=== PATIENT | female | born 1990 | race Caucasian/White ===

== ENCOUNTER 2017-03-10 15:47 | Inpatient (IN) | payer MEDICAID ==
[2017-03-10] MEDS ORDERED: MINERAL OIL PO PRN (16:26)
[2017-03-10] MEDS ORDERED: XYLOCAINE 2% INFILTRATI ONE (16:26)
[2017-03-10] MEDS ORDERED: ePHEDrine SULFATE IV PRN ×2 (16:26→18:51)
[2017-03-10] MEDS ORDERED: BRETHINE SUB-Q PRN (16:26)
[2017-03-10] MEDS ORDERED: BRETHINE IVP PRN (16:26)
[2017-03-10] MEDS ORDERED: SUBLIMAZE IV PRN (16:26)
--- NOTE | 2017-03-10 16:33 | History and Physical Report ---
History of Present Illness Date of examination: 03/10/17 Date of admission: 03/10/17 15:51 Chief complaint: leaking fluid History of present illness: 26 Y/O , now 38.6 weeks presents to the office today with leaking fluid, care at [facility]. Unremarkable course. GBS negative. Past History Past Medical History: no pertinent history Past Surgical History: no surgical history Family/Genetic History: none Social history: no significant social history - Obstetrical History Expected Date of Delivery: 03/18/17 Actual Gestation: 38 Week(s) 6 Day(s) : 2 Para: 1 Hx # Term Pregnancies: 1 Number of Pregnancies: 0 Medications and Allergies Allergies Allergy/AdvReac Type Severity Reaction Status Date / Time No Known Allergies Allergy Verified 11/18/13 14:42 Home Medications Medication Instructions Recorded Confirmed Last Taken Type Acyclovir [Zovirax Tab] 800 mg PO QID 7 Days 08/21/13 02/23/16 Unknown Rx Duloxetine HCl [Cymbalta] 60 mg PO 08/21/13 08/21/13 Unknown History PARoxetine CR (NF) [Paxil] 12.5 mg PO 08/21/13 08/21/13 08/21/13 History Prednisone 40 mg PO QDAY 5 Days 08/21/13 02/23/16 Unknown Rx clonazePAM [Clonazepam] 0.5 mg PO 08/21/13 08/21/13 08/20/13 History Ibuprofen [Motrin] 800 mg PO TID #30 tablet 11/18/13 02/23/16 Unknown Rx methOCARBAMOL [Robaxin] 500 mg PO BID #30 tab 11/18/13 02/23/16 Unknown Rx traMADol [Ultram 50 MG tab] 50 mg PO Q6HR PRN #20 tablet 11/18/13 02/23/16 Unknown Rx Ibuprofen [Motrin 600 MG tab] 600 mg PO Q6HR PRN #60 tablet 02/23/16 Unknown Rx Review of Systems All systems: negative - Physical Exam Breasts: Positive: deferred Cardiovascular: Regular rate Lungs: Positive: Clear to auscultation Abdomen: Positive: soft Genitourinary (Female): Positive: normal external genitalia Vagina: Positive: normal moisture Uterus: Positive: enlarged Anus/Rectum: Positive: normal perianal skin Extremities: Positive: normal Deep Tendon Reflex Grade: Normal +2 - Obstetrical FHR: category 1 Uterine Contraction Monitor Mode: External Cervical Dilatation: 8 Cervical Effacement Percentage: 80 station: 0 Uterine Contraction Pattern: Irregular Uterine Contraction Intensity: Mild Results Result Diagrams: 03/10/17 16:52 All other labs normal. Assessment and Plan A: Active labor @ 38.6 weeks P: Expect
[2017-03-10] MEDS ORDERED: PITOCin/NS 20 UNIT/1000ML DRIP 20 UNITS/1,000 ML BAG IV SCH (17:00)
[2017-03-10] MEDS ORDERED: LACTATED RINGERS 1,000 ML IV SCH (17:00)
[2017-03-10] MEDS: PITOCin/NS 30 UNIT/500ML 30 UNITS/500 ML BAG IV SCH ×3 (17:10→18:44)
[2017-03-10 17:57] LABS: Hematocrit 36.4 % (30.3-42.9); Hemoglobin 11.8 gm/dl (10.1-14.3); Mean Corpuscular HGB Conc 32 % (30-34); Mean Corpuscular Hemoglobin 30 pg (28-32); Mean Corpuscular Volume 92 fl (79-97); Platelet Count 198 K/mm3 (140-440); Red Blood Count 3.97 M/mm3 (3.65-5.03); Red Cell Distribution Width 14.3 % (13.2-15.2); White Blood Count 10.7 K/mm3 (4.5-11.0)
[2017-03-10] MEDS ORDERED: NARCAN 2 MG/2 ML IV PRN (18:51)
--- NOTE | 2017-03-10 18:51 | Anesthesia Consultation ---
Anesthesia Consult and Med Hx Date of service: 03/10/17 - Airway Anesthetic Teeth Evaluation: Good ROM Head & Neck: Adequate Mental/Hyoid Distance: Adequate Mallampati Class: Class II Intubation Access Assessment: Probably Good - Pre-Operative Health Status ASA Pre-Surgery Classification: ASA2 Proposed Anesthetic Plan: Epidural, Spinal - Pulmonary Hx Asthma: No COPD: No Hx Pneumonia: No - Cardiovascular System Hx Hypertension: No - Central Nervous System Hx Seizures: No Hx Psychiatric Problems: No - Endocrine Hx Renal Disease: No Hx End Stage Renal Disease: No Hx Hypothyroidism: No Hx Hyperthyroidism: No - Hematic Hx Anemia: No Hx Sickle Cell Disease: No - Other Systems Hx Alcohol Use: No
[2017-03-10] MEDS ORDERED: fentaNYL-BUPIV 2 MCG/ML-0.125% 200 MCG/100 ML BAG EPIDURAL SCH (19:00)
--- NOTE | 2017-03-10 19:38 | Procedure Note ---
OB Delivery Note - Delivery Date of Delivery: 03/10/17 Surgeon: BOY TAYLOR - Vaginal Delivery presentation: vertex Delivery position: OA Delivery induction: none Delivery augmentation: rupture of membranes, pitocin Delivery monitor: none Route of delivery: Delivery placenta: spontaneous Delivery cord: 3 umbilical vessels Episiotomy: none Delivery laceration: none Anesthesia: epidural Delivery comments: of a viable female 6#-2oz on March 10, 2017 @ 1912 over intact perineum. 8/9. Placenta delivered 3VCI. - A at 1 minute: 8 at 5 minutes: 9 Infant Gender: Female (6#2oz)
[2017-03-10] MEDS ORDERED: BENADRYL PO PRN (19:41)
[2017-03-10] MEDS ORDERED: DULCOLAX PR PRN (19:41)
[2017-03-10] MEDS ORDERED: TYLENOL PO PRN (19:41)
[2017-03-10] MEDS ORDERED: LANSINOH TP PRN (19:41)
[2017-03-10] MEDS ORDERED: DERMOPLAST TP PRN (19:41)
[2017-03-10] MEDS ORDERED: MILK OF MAGNESIA PO PRN (19:41)
[2017-03-10] MEDS ORDERED: PHENERGAN PO PRN (19:41)
[2017-03-10] MEDS ORDERED: SODIUM CHLORIDE FLUSH SYRINGE 10 ML IV NR (20:00)
[2017-03-10] MEDS: MOTRIN PO SCH (20:35)
[2017-03-10] MEDS: NORCO 5/325 PO PRN (21:14)
[2017-03-11] MEDS: NORCO 5/325 PO PRN ×2 (02:38→22:55)
[2017-03-11] MEDS: MOTRIN PO SCH ×4 (02:39→22:54)
[2017-03-11] MEDS ORDERED: BOOSTRIX IM ONE (06:00)
[2017-03-11 08:33] LABS: Hematocrit 34.6 % (30.3-42.9); Hemoglobin 11.4 gm/dl (10.1-14.3)
--- NOTE | 2017-03-11 09:43 | Progress Note ---
Assessment and Plan A: PPD1 VSS P: Routine care D/C tomorrow Subjective - Subjective Date of service: 03/11/17 Principal diagnosis: PPD1 Interval history: 26 Y/O , now 38.6 weeks presented to the office yesterday with leaking fluid, care at [facility]. Unremarkable course. GBS negative. Delivered on 03/10/2017 @ 1912. Patient reports: appetite normal, voiding normally, pain well controlled, ambulating normally [place]: doing well Objective - Vital Signs Latest vital signs: Vital Signs Temp Pulse Pulse Resp BP BP Pulse Ox 03/11/17 05:00 98 F 78 20 98/59 03/10/17 20:40 97.0 F L 20 03/10/17 20:35 98.8 F 77 20 108/70 03/10/17 20:18 76 91 03/10/17 20:16 65 99 03/10/17 20:11 72 99 03/10/17 20:10 111/70 03/10/17 20:06 67 99 03/10/17 20:01 85 99 03/10/17 19:56 78 98 03/10/17 19:55 75 111/67 03/10/17 19:51 82 100 03/10/17 19:49 82 110/76 88 03/10/17 19:46 73 100 03/10/17 19:41 70 98 03/10/17 19:39 79 93 03/10/17 19:36 73 100 03/10/17 19:32 65 100/53 03/10/17 19:31 72 100 03/10/17 19:26 85 100 03/10/17 19:21 82 100 03/10/17 19:16 72 100 03/10/17 19:15 96.6 F L 18 03/10/17 19:11 102 H 100 03/10/17 19:06 64 100 03/10/17 19:01 66 100 03/10/17 18:56 62 100 03/10/17 18:52 60 106/58 03/10/17 18:51 64 100 03/10/17 18:46 79 100 03/10/17 18:41 61 99/62 99 03/10/17 18:40 80 95/60 03/10/17 18:38 121 H 95/59 03/10/17 18:36 75 95/61 100 03/10/17 18:34 104 H 103/58 03/10/17 18:32 74 110/66 03/10/17 18:31 67 100 03/10/17 18:29 71 109/76 03/10/17 18:27 77 108/75 03/10/17 18:26 63 109/62 82 L 03/10/17 18:25 79 81 L 03/10/17 18:21 88 93 03/10/17 18:20 81 93 03/10/17 18:16 85 100 03/10/17 18:09 80 109/71 03/10/17 17:54 87 108/76 03/10/17 17:39 78 108/70 03/10/17 17:25 77 109/67 03/10/17 17:09 80 108/73 03/10/17 16:55 90 110/68 03/10/17 16:42 97.6 F 18 03/10/17 16:39 85 108/74 Intake and Output 03/10/17 03/11/17 03/11/17 22:59 06:59 14:59 Intake Total 2245 985 Output Total 500 500 Balance 1745 485 Intake: IV 1520 625 Lactated Ringers 1,000 ml 1270 @ 125 mls/hr IV DIRECT MICHELL Rx#:[id number] PITOCin/NS 20 UNIT/1000ML 125 375 DRIP 20 units In 1,000 ml @ 125 mls/hr IV DIRECT MICHELL Rx#:[id number] Right Hand 125 250 Intake, Free Water 360 Other 725 Output: Urine 500 500 Indwelling Catheter 500 Void 500 Other: Intake, Other Source Saline Solution Total, Intake Amount 725 Total, Output Amount 200 500 Weight 150 lb Estimated Blood Loss 200 - Exam Cardiovascular: Present: Regular rate Lungs: Present: Normal air movement Abdomen: Present: soft Vulva: both: normal (scant lochia) Uterus: Present: firm, fundal height below umbilicus Extremities: Present: normal Deep Tendon Reflex Grade: Normal +2 - Allied health notes Allied health notes reviewed: nursing
--- NOTE | 2017-03-11 09:44 | Discharge Summary ---
Providers - Providers Date of Admission: 03/10/17 15:51 Date of discharge: 03/12/17 Attending physician: TRACY WILSON MD Primary care physician: TRACY WILSON MD Hospitalization Reason for admission: rupture of membranes, IUP at term Delivery: Laceration: none Discharge diagnosis: IUP at term delivered [place] baby: female Hospital course: uneventful Condition at discharge: Good Disposition: DISCHARGED TO HOME OR SELFCARE Plan - Provider Discharge Summary Activity: routine, no sex for 6 weeks, no heavy lifting 4 weeks, no strenuous exercise Diet: routine Instructions: routine Additional instructions: [] Smoking cessation referral if applicable(refer to patient education folder for contact #) [] Refer to [facility] Booklet Call your doctor immediately for: * Fever > 100.5 * Heavy vaginal bleeding ( >1 pad per hour) * Severe persistent headache * Shortness of breath * Reddened, hot, painful area to leg or breast * Drainage or odor from incision. * Keep incision clean and dry at all times and follow doctor's instructions regarding bathing/showering - Follow up plan Follow up: [facility] [Provider Group] - 6 Weeks
[2017-03-11] MEDS ORDERED: FLUARIX QUAD 2016-2017(36 MOS+) IM ONE (12:00)
--- NOTE | 2017-03-11 12:33 | Progress Note ---
Subjective Date of service: 03/11/17 Principal diagnosis: PPD1 Interval history: 1st day after normal vaginal delivery Patient is in the bed, comfortable. Pain is well controlled with pain meds. Ambulated well. No residual neurological deficit. No anesthesia complications Objective - Constitutional Vitals: Vital Signs - 12hr 03/11/17 03/11/17 05:00 08:35 Temperature 98 F 98.9 F Pulse Rate [ 78 80 Left From Monitor] Respiratory 20 20 Rate Blood Pressure 98/59 102/52 [Left Arm] - Labs CBC & Chem 7: 03/11/17 08:07
[2017-03-12] MEDS: MOTRIN PO SCH (06:22)
[2017-03-12] MEDS ORDERED: FLUARIX QUAD 2016-2017(36 MOS+) IM ONE (07:25)
[2017-03-12 13:16] VITALS: BP 112/58
== END 2017-03-12 11:45 | disposition home or self-care (01) | DRG 775 ==
LOC: TRG 15:47 → LD 15:51 → OB 20:51
PROVIDERS: ADMIT Obstetrics & Gynecology; ATTEND Obstetrics & Gynecology
PROC: 10E0XZZ Delivery of Products of Conception, External Approach (ICD-10-PCS; principal; 2017-03-10)
PROC: 3E033VJ Introduction of Other Hormone into Peripheral Vein, Percutaneous Approach (ICD-10-PCS; 2017-03-10)
PROC: 3E0R3BZ Introduction of Anesthetic Agent into Spinal Canal, Percutaneous Approach (ICD-10-PCS; 2017-03-10)
DX: O80 Encounter for full-term uncomplicated delivery (principal); Z3A.38 38 weeks gestation of pregnancy; Z37.0 Single live birth
CPT/HCPCS: 36415; 85014; 85018; 85027; 86850; 86900; 86901; 90471; 90686; 90715; 99211; G0008; G0463; J2590; J3010; J7120

== ENCOUNTER 2019-05-10 12:13 | Inpatient (IN) | payer MEDICAID ==
[2019-05-10] MEDS ORDERED: STADOL IV PRN (13:36)
[2019-05-10] MEDS ORDERED: BRETHINE SUB-Q PRN (13:36)
[2019-05-10] MEDS ORDERED: XYLOCAINE 2% INFILTRATI ONE (13:36)
[2019-05-10] MEDS ORDERED: BRETHINE IVP PRN (13:36)
[2019-05-10] MEDS ORDERED: CERVIDIL VG ONE (13:36)
[2019-05-10] MEDS ORDERED: SUBLIMAZE IV PRN (13:36)
[2019-05-10] MEDS ORDERED: MINERAL OIL PO PRN (13:36)
[2019-05-10 13:58] LABS: Hematocrit 34.3 % (30.3-42.9); Hemoglobin 11.6 gm/dl (10.1-14.3); Mean Corpuscular HGB Conc 34 % (30-34); Mean Corpuscular Volume 89 fl (79-97); Platelet Count 236 K/mm3 (140-440); Red Blood Count 3.86 M/mm3 (3.65-5.03); Red Cell Distribution Width 14.3 % (13.2-15.2)
[2019-05-10] MEDS: LACTATED RINGERS 1,000 ML IV SCH ×2 (14:00→21:01)
[2019-05-10] MEDS ORDERED: PITOCin/NS 30 UNIT/500ML 30 UNITS/500 ML BAG IV SCH (14:00)
[2019-05-10] MEDS ORDERED: PITOCin/NS 20 UNIT/1000ML DRIP 20 UNITS/1,000 ML BAG IV SCH (14:00)
--- NOTE | 2019-05-10 17:44 | History and Physical Report ---
History of Present Illness Date of examination: 05/10/19 Date of admission: 05/10/19 12:13 Chief complaint: Sent from the clinic for IOL History of present illness: 28yo G 3 P 2 0 0 2 @ 38 weeks 1 day here for IOL. She was seen at the clinic today for a growth scan. ROBBY 6.30 - oligohydramnios. She is a [facility] [employer] pt who initiated care at 15 weeks gestation. Her course was complicated by late entry to care, strep throat (tx'd w/amoxicillin) & anemia (on iron therapy). Labs: A pos, Antibody screen neg, Pap smear normal, RI, VDRL NR, HBsAg neg, HIV neg, MSAFP neg, Diabetes Screen 90, GC/CT/Trich neg, GBS neg. Past History Past Medical History: no pertinent history Past Surgical History: no surgical history [employer] History: abnormal PAP smear (2014) Family/Genetic History: none Social history: , lives with family, full code. denies: smoking, alcohol abuse, prescription drug abuse, IV drug use - Obstetrical History Expected Date of Delivery: 05/23/19 Actual Gestation: 38 Week(s) 1 Day(s) : 3 Para: 2 Hx # Term Pregnancies: 2 Number of Pregnancies: 0 Spontaneous Abortions: 0 Induced : 0 Number of Living Children: 2 #1 Gender: Female year: 2,016 (02/22/2017) Birthweight: 2.438 kg (5 lbs 6 oz) Method of Delivery: Vaginal Gestational age at delivery: 40 Complications: none #2 Gender: Female year: 2,[birth year] (03/10/2017) Birthweight: 2.778 kg Gestational age at delivery: 39 Complications: none Medications and Allergies Allergies Allergy/AdvReac Type Severity Reaction Status Date / Time No Known Allergies Allergy Verified 05/10/19 13:36 Home Medications Medication Instructions Recorded Confirmed Last Taken Type No Known Home Medications [No 03/10/17 03/10/17 Unknown History Reported Home Medications] Active Meds: Active Medications Butorphanol Tartrate (Stadol) 2 mg IV Q2H PRN PRN Reason: Pain , Severe (7-10) Ephedrine Sulfate (Ephedrine Sulfate) 10 mg IV Q2M PRN PRN Reason: Hypotension Fentanyl (Sublimaze) 100 mcg IV Q2H PRN PRN Reason: Labor Pain Oxytocin/Sodium Chloride (Pitocin/Ns 20 Unit/1000ml Drip) 20 units in 1,000 mls @ 125 mls/hr IV DIRECT MICHELL Oxytocin/Sodium Chloride (Pitocin/Ns 30 Unit/500ml) 30 units in 500 mls @ 1 mls/hr IV TITR MICHELL; Protocol Lactated Ringer's (Lactated Ringers) 1,000 mls @ 125 mls/hr IV DIRECT MICHELL Last Admin: 05/10/19 14:00 Dose: 125 mls/hr Documented by: Mineral Oil (Mineral Oil) 30 ml PO QHS PRN PRN Reason: Constipation Terbutaline Sulfate (Brethine) 0.25 mg SUB-Q ONCE PRN PRN Reason: Hyperstimulation/Hypertonicity Terbutaline Sulfate (Brethine) 0.25 mg IVP ONCE PRN PRN Reason: Hyperstimulation/Hypertonicity Review of Systems All systems: negative - Vital Signs Vital signs: Vital Signs Pulse BP 100 H 98/62 05/10/19 13:14 05/10/19 13:14 Temp Pulse Resp BP Pulse Ox 98.5 F 93 H 16 92/56 97 05/10/19 15:54 05/10/19 17:33 05/10/19 15:54 05/10/19 17:10 05/10/19 17:33 - Obstetrical FHR: auscultation normal, category 1 FHR comments: baseline 140, moderate variability, 15x15 accels, no decels Uterine Contraction Monitor Mode: External Cervical Dilatation: 1 Cervical Effacement Percentage: 30 station: -3 Uterine Contraction Pattern: Irregular Results Result Diagrams: 05/10/19 12:48 All other labs normal. Assessment and Plan - Patient Problems (1) 38 weeks gestation of Current Visit: Yes Status: Acute (2) Oligohydramnios in third trimester Current Visit: Yes Status: Acute Qualifiers: Fetus number: single or unspecified fetus Qualified Code(s): O41.03X0 - Oligohydramnios, third trimester, not applicable or unspecified (3) Encounter for induction of labor Current Visit: Yes Status: Acute Plan to address problem: Admit to L&D with routine labor orders Cervidil for cervical ripening Anticipate vaginal delivery
[2019-05-10] MEDS: TYLENOL PO PRN (18:07)
[2019-05-11] MEDS: TYLENOL PO PRN (03:09)
--- NOTE | 2019-05-11 10:37 | Progress Note ---
Assessment and Plan - Patient Problems (1) Encounter for induction of labor Current Visit: Yes Status: Acute Plan to address problem: Attempted to place young balloon, unsucessful secondary to unable to visualize cervix with speculum and pt unable to tolerate placement manually without speculum use Place second cervidile x 12 hrs Pain medication as desired Anticipate (2) Oligohydramnios in third trimester Current Visit: Yes Status: Acute Qualifiers: Fetus number: single or unspecified fetus Qualified Code(s): O41.03X0 - Oligohydramnios, third trimester, not applicable or unspecified (3) Olguin's palsy Current Visit: No Status: Acute Subjective - Subjective Date of service: 05/11/19 Principal diagnosis: IOL secondary to oligo Patient reports: movement normal, no loss of fluid, no vaginal bleeding Objective - Vital Signs Vital Signs: Vital Signs - 12hr 05/10/19 05/10/19 05/10/19 22:33 22:38 22:43 Pulse Rate 83 82 85 Respiratory Rate Blood Pressure O2 Sat by Pulse 96 96 97 Oximetry 05/10/19 05/10/19 05/10/19 22:48 22:53 22:58 Pulse Rate 85 81 79 Respiratory Rate Blood Pressure O2 Sat by Pulse 98 97 97 Oximetry 05/10/19 05/10/19 05/10/19 23:03 23:08 23:13 Pulse Rate 85 80 89 Respiratory Rate Blood Pressure O2 Sat by Pulse 98 97 99 Oximetry 05/10/19 05/10/19 05/10/19 23:18 23:23 23:28 Pulse Rate 92 H 79 85 Respiratory Rate Blood Pressure O2 Sat by Pulse 98 98 98 Oximetry 05/10/19 05/10/19 05/10/19 23:33 23:38 23:43 Pulse Rate 85 76 88 Respiratory Rate Blood Pressure O2 Sat by Pulse 97 97 97 Oximetry 05/10/19 05/10/19 05/10/19 23:48 23:53 23:58 Pulse Rate 76 90 67 Respiratory Rate Blood Pressure O2 Sat by Pulse 97 97 97 Oximetry 05/11/19 05/11/19 05/11/19 00:03 00:08 00:13 Pulse Rate 72 67 71 Respiratory Rate Blood Pressure O2 Sat by Pulse 98 98 97 Oximetry 05/11/19 05/11/19 05/11/19 00:18 00:23 00:31 Pulse Rate 76 74 101 H Respiratory Rate Blood Pressure O2 Sat by Pulse 97 98 99 Oximetry 05/11/19 05/11/19 05/11/19 00:36 00:41 00:46 Pulse Rate 72 73 81 Respiratory Rate Blood Pressure O2 Sat by Pulse 98 97 98 Oximetry 05/11/19 05/11/19 05/11/19 00:51 00:56 01:01 Pulse Rate 95 H 67 81 Respiratory Rate Blood Pressure O2 Sat by Pulse 98 97 98 Oximetry 05/11/19 05/11/19 05/11/19 01:06 01:11 01:16 Pulse Rate 71 79 59 L Respiratory Rate Blood Pressure O2 Sat by Pulse 97 97 97 Oximetry 05/11/19 05/11/19 05/11/19 01:21 01:26 01:31 Pulse Rate 72 61 63 Respiratory Rate Blood Pressure O2 Sat by Pulse 98 97 97 Oximetry 05/11/19 05/11/19 05/11/19 01:36 01:41 01:46 Pulse Rate 70 67 66 Respiratory Rate Blood Pressure O2 Sat by Pulse 97 97 96 Oximetry 05/11/19 05/11/19 05/11/19 01:49 01:51 01:56 Pulse Rate 80 69 73 Respiratory Rate Blood Pressure O2 Sat by Pulse 93 97 98 Oximetry 05/11/19 05/11/19 05/11/19 02:01 02:06 02:11 Pulse Rate 66 67 72 Respiratory Rate Blood Pressure O2 Sat by Pulse 97 97 97 Oximetry 05/11/19 05/11/19 05/11/19 02:16 02:21 02:26 Pulse Rate 60 68 61 Respiratory Rate Blood Pressure O2 Sat by Pulse 97 97 97 Oximetry 05/11/19 05/11/19 05/11/19 02:27 02:31 02:36 Pulse Rate 59 L 61 78 Respiratory Rate Blood Pressure 97/54 O2 Sat by Pulse 97 98 Oximetry 05/11/19 05/11/19 05/11/19 02:41 02:46 02:51 Pulse Rate 76 73 73 Respiratory Rate Blood Pressure O2 Sat by Pulse 99 98 98 Oximetry 05/11/19 05/11/19 05/11/19 02:56 03:01 03:06 Pulse Rate 72 64 92 H Respiratory Rate Blood Pressure O2 Sat by Pulse 98 98 98 Oximetry 05/11/19 05/11/19 05/11/19 03:09 03:11 03:16 Pulse Rate 90 73 Respiratory 18 Rate Blood Pressure O2 Sat by Pulse 99 99 Oximetry 05/11/19 05/11/19 05/11/19 03:21 03:26 03:31 Pulse Rate 70 69 76 Respiratory Rate Blood Pressure O2 Sat by Pulse 99 99 98 Oximetry 05/11/19 05/11/19 05/11/19 03:36 03:41 03:46 Pulse Rate 73 69 66 Respiratory Rate Blood Pressure O2 Sat by Pulse 98 97 98 Oximetry 05/11/19 05/11/19 05/11/19 03:51 03:56 04:01 Pulse Rate 64 71 64 Respiratory Rate Blood Pressure O2 Sat by Pulse 97 97 94 Oximetry 05/11/19 05/11/19 05/11/19 04:06 04:07 04:09 Pulse Rate 65 73 Respiratory 18 Rate Blood Pressure 85/53 O2 Sat by Pulse 97 Oximetry 05/11/19 05/11/19 05/11/19 04:11 04:16 04:21 Pulse Rate 67 63 66 Respiratory Rate Blood Pressure O2 Sat by Pulse 98 96 96 Oximetry 05/11/19 05/11/19 05/11/19 04:26 04:31 04:36 Pulse Rate 59 L 62 60 Respiratory Rate Blood Pressure O2 Sat by Pulse 96 96 97 Oximetry 05/11/19 05/11/19 05/11/19 04:41 04:46 04:50 Pulse Rate 79 66 77 Respiratory Rate Blood Pressure O2 Sat by Pulse 97 97 94 Oximetry 05/11/19 05/11/19 05/11/19 04:51 04:56 05:01 Pulse Rate 69 53 L 58 L Respiratory Rate Blood Pressure O2 Sat by Pulse 97 97 97 Oximetry 05/11/19 05/11/19 05/11/19 05:06 05:08 05:11 Pulse Rate 56 L 80 72 Respiratory Rate Blood Pressure 100/59 O2 Sat by Pulse 98 98 Oximetry 05/11/19 05/11/19 05/11/19 05:16 05:21 05:26 Pulse Rate 78 73 96 H Respiratory Rate Blood Pressure O2 Sat by Pulse 99 98 98 Oximetry 05/11/19 05/11/19 05/11/19 05:31 05:36 05:41 Pulse Rate 83 90 71 Respiratory Rate Blood Pressure O2 Sat by Pulse 98 98 98 Oximetry 05/11/19 05/11/19 05/11/19 05:46 05:51 05:56 Pulse Rate 70 68 68 Respiratory Rate Blood Pressure O2 Sat by Pulse 96 96 96 Oximetry 05/11/19 05/11/19 05/11/19 06:01 06:06 06:07 Pulse Rate 70 84 67 Respiratory Rate Blood Pressure 98/54 O2 Sat by Pulse 97 96 Oximetry 05/11/19 05/11/19 05/11/19 06:11 06:16 06:21 Pulse Rate 60 71 72 Respiratory Rate Blood Pressure O2 Sat by Pulse 97 97 97 Oximetry 05/11/19 05/11/19 05/11/19 06:26 06:31 06:36 Pulse Rate 57 L 70 64 Respiratory Rate Blood Pressure O2 Sat by Pulse 97 97 97 Oximetry 05/11/19 05/11/19 05/11/19 06:41 06:46 06:51 Pulse Rate 63 68 75 Respiratory Rate Blood Pressure O2 Sat by Pulse 97 97 97 Oximetry 05/11/19 05/11/19 05/11/19 06:56 07:01 07:06 Pulse Rate 61 68 63 Respiratory Rate Blood Pressure O2 Sat by Pulse 98 98 98 Oximetry 05/11/19 05/11/19 05/11/19 07:08 07:11 07:16 Pulse Rate 68 87 70 Respiratory Rate Blood Pressure 82/53 O2 Sat by Pulse 97 97 Oximetry 05/11/19 05/11/19 05/11/19 07:21 07:26 07:30 Pulse Rate 75 85 74 Respiratory Rate Blood Pressure O2 Sat by Pulse 97 96 92 Oximetry 05/11/19 05/11/19 05/11/19 07:31 07:36 07:41 Pulse Rate 74 70 71 Respiratory Rate Blood Pressure O2 Sat by Pulse 96 98 97 Oximetry 05/11/19 05/11/19 05/11/19 07:46 07:51 07:56 Pulse Rate 79 72 93 H Respiratory Rate Blood Pressure O2 Sat by Pulse 97 97 99 Oximetry 05/11/19 05/11/19 05/11/19 08:01 08:06 08:08 Pulse Rate 56 L 93 H 63 Respiratory Rate Blood Pressure 99/62 O2 Sat by Pulse 100 99 Oximetry 05/11/19 05/11/19 05/11/19 08:11 08:16 08:30 Pulse Rate 72 77 82 Respiratory Rate Blood Pressure 111/63 O2 Sat by Pulse 98 98 Oximetry 05/11/19 05/11/19 09:06 10:07 Pulse Rate 82 105 H Respiratory Rate Blood Pressure 109/73 144/74 O2 Sat by Pulse Oximetry - Exam Breasts: deferred Cardiovascular: Regular rate Lungs: Normal air movement Abdomen: Present: other (gravid) Uterus: Present: other (S=D) FHR: category 1 Uterine Contraction Monitor Mode: External Cervical Dilatation: 1 Cervical Effacement Percentage: 50 (very posterior) station: -3 Uterine Contraction Pattern: Irregular Uterine Tone Measurement Phase: Resting Uterine Contraction Intensity: Mild Extremities: normal Deep Tendon Reflex Grade: Normal +2 - Labs Labs: Laboratory Results - last 24 hr 05/10/19 05/10/19 12:48 12:48 WBC 8.7 RBC 3.86 Hgb 11.6 Hct 34.3 MCV 89 MCH 30 MCHC 34 RDW 14.3 Plt Count 236 Blood Type A POSITIVE Antibody Screen Negative
[2019-05-11] MEDS ORDERED: CERVIDIL VG ONE (11:00)
--- NOTE | 2019-05-11 17:09 | Progress Note ---
Assessment and Plan - Patient Problems (1) Encounter for induction of labor Current Visit: Yes Status: Acute Plan to address problem: Second cervidile was placed at 1254, tolerating well Pain medication as desired After cervidil removal tonight at 0100, if cervical dilation is >3cm, start Pitocin at 2mu/min and increase by 2. If less than 3cm cervical dilation, start low dose Pitocin until 0800 and reassess. Anticipate (2) Oligohydramnios in third trimester Current Visit: Yes Status: Acute Qualifiers: Fetus number: single or unspecified fetus Qualified Code(s): O41.03X0 - Oligohydramnios, third trimester, not applicable or unspecified (3) Olguin's palsy Current Visit: No Status: Acute Subjective - Subjective Date of service: 05/11/19 Principal diagnosis: IOL secondary to oligo Interval history: See admission H & P and OB progress notes Patient reports: movement normal, no loss of fluid, no vaginal bleeding Objective - Vital Signs Vital Signs: Vital Signs - 12hr 05/11/19 05/11/19 05/11/19 05:06 05:08 05:11 Temperature Pulse Rate 56 L 80 72 Blood Pressure 100/59 O2 Sat by Pulse 98 98 Oximetry 05/11/19 05/11/19 05/11/19 05:16 05:21 05:26 Temperature Pulse Rate 78 73 96 H Blood Pressure O2 Sat by Pulse 99 98 98 Oximetry 05/11/19 05/11/19 05/11/19 05:31 05:36 05:41 Temperature Pulse Rate 83 90 71 Blood Pressure O2 Sat by Pulse 98 98 98 Oximetry 05/11/19 05/11/19 05/11/19 05:46 05:51 05:56 Temperature Pulse Rate 70 68 68 Blood Pressure O2 Sat by Pulse 96 96 96 Oximetry 05/11/19 05/11/19 05/11/19 06:01 06:06 06:07 Temperature Pulse Rate 70 84 67 Blood Pressure 98/54 O2 Sat by Pulse 97 96 Oximetry 05/11/19 05/11/19 05/11/19 06:11 06:16 06:21 Temperature Pulse Rate 60 71 72 Blood Pressure O2 Sat by Pulse 97 97 97 Oximetry 05/11/19 05/11/19 05/11/19 06:26 06:31 06:36 Temperature Pulse Rate 57 L 70 64 Blood Pressure O2 Sat by Pulse 97 97 97 Oximetry 05/11/19 05/11/19 05/11/19 06:41 06:46 06:51 Temperature Pulse Rate 63 68 75 Blood Pressure O2 Sat by Pulse 97 97 97 Oximetry 05/11/19 05/11/19 05/11/19 06:56 07:01 07:06 Temperature Pulse Rate 61 68 63 Blood Pressure O2 Sat by Pulse 98 98 98 Oximetry 05/11/19 05/11/19 05/11/19 07:08 07:11 07:16 Temperature Pulse Rate 68 87 70 Blood Pressure 82/53 O2 Sat by Pulse 97 97 Oximetry 05/11/19 05/11/19 05/11/19 07:21 07:26 07:30 Temperature Pulse Rate 75 85 74 Blood Pressure O2 Sat by Pulse 97 96 92 Oximetry 05/11/19 05/11/19 05/11/19 07:31 07:36 07:41 Temperature Pulse Rate 74 70 71 Blood Pressure O2 Sat by Pulse 96 98 97 Oximetry 05/11/19 05/11/19 05/11/19 07:46 07:51 07:56 Temperature Pulse Rate 79 72 93 H Blood Pressure O2 Sat by Pulse 97 97 99 Oximetry 05/11/19 05/11/19 05/11/19 08:01 08:06 08:08 Temperature Pulse Rate 56 L 93 H 63 Blood Pressure 99/62 O2 Sat by Pulse 100 99 Oximetry 05/11/19 05/11/19 05/11/19 08:11 08:16 08:30 Temperature Pulse Rate 72 77 82 Blood Pressure 111/63 O2 Sat by Pulse 98 98 Oximetry 05/11/19 05/11/19 05/11/19 09:06 10:07 13:42 Temperature 98.6 F Pulse Rate 82 105 H Blood Pressure 109/73 144/74 O2 Sat by Pulse Oximetry 05/11/19 05/11/19 05/11/19 15:01 15:16 16:07 Temperature Pulse Rate 95 H 76 84 Blood Pressure 106/64 92/47 O2 Sat by Pulse 98 Oximetry - Exam Breasts: deferred Cardiovascular: Regular rate Lungs: Normal air movement Uterus: Present: other (S=D) FHR: category 1 Uterine Contraction Monitor Mode: External Uterine Contraction Pattern: Irregular Uterine Tone Measurement Phase: Resting - Labs Labs: Laboratory Results - last 24 hr 05/10/19 12:48 RPR Nonreactive
[2019-05-11] MEDS: LACTATED RINGERS 1,000 ML IV SCH (17:37)
[2019-05-12] MEDS: LACTATED RINGERS 1,000 ML IV SCH (01:21)
[2019-05-12] MEDS ORDERED: MARCAINE 0.25% INFILTRATI ONE (05:53)
[2019-05-12] MEDS ORDERED: NARCAN 2 MG/2 ML IV PRN (06:20)
--- NOTE | 2019-05-12 06:20 | Anesthesia Consultation ---
Anesthesia Consult and Med Hx Date of service: 05/12/19 - Airway Anesthetic Teeth Evaluation: Good ROM Head & Neck: Adequate Mental/Hyoid Distance: Adequate Mallampati Class: Class II Intubation Access Assessment: Good - Pulmonary Exam CTA: Yes - Cardiac Exam Cardiac Exam: RRR - Pre-Operative Health Status ASA Pre-Surgery Classification: ASA2 Proposed Anesthetic Plan: Epidural - Pulmonary Hx Asthma: No COPD: No Hx Pneumonia: No - Cardiovascular System Hx Hypertension: No - Central Nervous System Hx Seizures: No Hx Psychiatric Problems: No - Endocrine Hx Renal Disease: No Hx End Stage Renal Disease: No Hx Hypothyroidism: No Hx Hyperthyroidism: No - Hematic Hx Anemia: Yes Hx Sickle Cell Disease: No - Other Systems Hx Alcohol Use: No
[2019-05-12] MEDS ORDERED: fentaNYL-BUPIV 2 MCG/ML-0.125% 200 MCG/100 ML BAG EPIDURAL SCH (07:00)
--- NOTE | 2019-05-12 09:48 | Progress Note ---
Assessment and Plan A: IUP @ 38 3/7 Weeks Category I Tracing Oligo GBS Negative P: AROM Multiple Maternal position Anticipate Subjective - Subjective Date of service: 05/12/19 Principal diagnosis: IOL secondary to oligo Patient reports: movement normal, no loss of fluid, no vaginal bleeding Objective - Vital Signs Vital Signs: Vital Signs - 12hr 05/11/19 05/11/19 05/11/19 22:07 23:07 23:22 Temperature Pulse Rate 80 76 75 Respiratory Rate Blood Pressure 111/71 94/50 Blood Pressure [Left] O2 Sat by Pulse 99 Oximetry 05/11/19 05/11/19 05/11/19 23:27 23:32 23:37 Temperature Pulse Rate 77 70 79 Respiratory Rate Blood Pressure Blood Pressure [Left] O2 Sat by Pulse 99 98 99 Oximetry 05/11/19 05/11/19 05/11/19 23:42 23:47 23:52 Temperature Pulse Rate 75 83 75 Respiratory Rate Blood Pressure Blood Pressure [Left] O2 Sat by Pulse 99 98 99 Oximetry 05/11/19 05/12/19 05/12/19 23:57 00:00 00:02 Temperature 98 F Pulse Rate 73 78 73 Respiratory 18 Rate Blood Pressure Blood Pressure 120/70 [Left] O2 Sat by Pulse 98 100 99 Oximetry 05/12/19 05/12/19 05/12/19 00:07 00:08 00:12 Temperature Pulse Rate 82 79 72 Respiratory Rate Blood Pressure 108/71 Blood Pressure [Left] O2 Sat by Pulse 98 99 Oximetry 05/12/19 05/12/19 05/12/19 00:17 00:22 00:27 Temperature Pulse Rate 88 77 63 Respiratory Rate Blood Pressure Blood Pressure [Left] O2 Sat by Pulse 98 98 97 Oximetry 05/12/19 05/12/19 05/12/19 00:32 00:37 00:42 Temperature Pulse Rate 65 68 67 Respiratory Rate Blood Pressure Blood Pressure [Left] O2 Sat by Pulse 98 98 98 Oximetry 05/12/19 05/12/19 05/12/19 00:47 00:52 00:57 Temperature Pulse Rate 72 61 66 Respiratory Rate Blood Pressure Blood Pressure [Left] O2 Sat by Pulse 99 98 97 Oximetry 05/12/19 05/12/19 05/12/19 01:02 01:07 01:09 Temperature Pulse Rate 69 68 60 Respiratory Rate Blood Pressure Blood Pressure [Left] O2 Sat by Pulse 99 98 90 Oximetry 05/12/19 05/12/19 05/12/19 01:12 01:17 01:22 Temperature Pulse Rate 66 73 69 Respiratory Rate Blood Pressure Blood Pressure [Left] O2 Sat by Pulse 99 100 99 Oximetry 05/12/19 05/12/19 05/12/19 01:27 01:32 01:37 Temperature Pulse Rate 69 74 74 Respiratory Rate Blood Pressure Blood Pressure [Left] O2 Sat by Pulse 98 99 99 Oximetry 05/12/19 05/12/19 05/12/19 01:42 01:47 01:59 Temperature Pulse Rate 78 74 75 Respiratory Rate Blood Pressure Blood Pressure [Left] O2 Sat by Pulse 99 99 100 Oximetry 05/12/19 05/12/19 05/12/19 02:04 02:08 02:09 Temperature Pulse Rate 73 67 71 Respiratory Rate Blood Pressure 100/58 Blood Pressure [Left] O2 Sat by Pulse 99 100 Oximetry 05/12/19 05/12/19 05/12/19 02:14 02:19 02:24 Temperature Pulse Rate 72 73 62 Respiratory Rate Blood Pressure Blood Pressure [Left] O2 Sat by Pulse 98 98 98 Oximetry 05/12/19 05/12/19 05/12/19 02:29 02:34 02:39 Temperature Pulse Rate 63 67 60 Respiratory Rate Blood Pressure Blood Pressure [Left] O2 Sat by Pulse 99 98 98 Oximetry 05/12/19 05/12/19 05/12/19 02:44 02:49 02:54 Temperature Pulse Rate 63 69 70 Respiratory Rate Blood Pressure Blood Pressure [Left] O2 Sat by Pulse 97 97 97 Oximetry 05/12/19 05/12/19 05/12/19 02:59 03:04 03:09 Temperature Pulse Rate 65 67 65 Respiratory Rate Blood Pressure 82/51 Blood Pressure [Left] O2 Sat by Pulse 99 98 98 Oximetry 05/12/19 05/12/19 05/12/19 03:14 03:19 03:24 Temperature Pulse Rate 57 L 66 69 Respiratory Rate Blood Pressure Blood Pressure [Left] O2 Sat by Pulse 98 97 99 Oximetry 05/12/19 05/12/19 05/12/19 03:29 03:34 03:39 Temperature Pulse Rate 65 60 68 Respiratory Rate Blood Pressure Blood Pressure [Left] O2 Sat by Pulse 99 98 99 Oximetry 05/12/19 05/12/19 05/12/19 03:44 03:49 03:54 Temperature Pulse Rate 68 69 71 Respiratory Rate Blood Pressure Blood Pressure [Left] O2 Sat by Pulse 97 97 97 Oximetry 05/12/19 05/12/19 05/12/19 03:59 04:00 04:04 Temperature 97.9 F Pulse Rate 66 72 69 Respiratory 18 Rate Blood Pressure Blood Pressure 118/60 [Left] O2 Sat by Pulse 97 100 97 Oximetry 05/12/19 05/12/19 05/12/19 04:07 04:09 04:14 Temperature Pulse Rate 69 68 67 Respiratory Rate Blood Pressure 89/52 Blood Pressure [Left] O2 Sat by Pulse 98 98 Oximetry 05/12/19 05/12/19 05/12/19 04:19 04:24 04:29 Temperature Pulse Rate 62 74 69 Respiratory Rate Blood Pressure Blood Pressure [Left] O2 Sat by Pulse 99 99 99 Oximetry 05/12/19 05/12/19 05/12/19 04:34 04:39 04:44 Temperature Pulse Rate 73 69 68 Respiratory Rate Blood Pressure Blood Pressure [Left] O2 Sat by Pulse 99 99 100 Oximetry 05/12/19 05/12/19 05/12/19 04:49 04:54 05:34 Temperature Pulse Rate 86 72 97 H Respiratory Rate Blood Pressure Blood Pressure [Left] O2 Sat by Pulse 99 100 100 Oximetry 05/12/19 05/12/19 05/12/19 05:39 05:44 05:49 Temperature Pulse Rate 85 70 78 Respiratory Rate Blood Pressure Blood Pressure [Left] O2 Sat by Pulse 100 100 100 Oximetry 05/12/19 05/12/19 05/12/19 05:54 05:59 06:04 Temperature Pulse Rate 103 H 84 93 H Respiratory Rate Blood Pressure Blood Pressure [Left] O2 Sat by Pulse 99 99 99 Oximetry 05/12/19 05/12/19 05/12/19 06:09 06:12 06:14 Temperature Pulse Rate 136 H 115 H 117 H Respiratory Rate Blood Pressure 89/44 Blood Pressure [Left] O2 Sat by Pulse 100 99 Oximetry 05/12/19 05/12/19 05/12/19 06:15 06:18 06:19 Temperature Pulse Rate 108 H 81 97 H Respiratory Rate Blood Pressure 97/66 97/54 Blood Pressure [Left] O2 Sat by Pulse 99 Oximetry 05/12/19 05/12/19 05/12/19 06:20 06:23 06:24 Temperature Pulse Rate 90 85 88 Respiratory Rate Blood Pressure 83/50 80/47 Blood Pressure [Left] O2 Sat by Pulse 99 Oximetry 05/12/19 05/12/19 05/12/19 06:26 06:29 06:32 Temperature Pulse Rate 66 64 68 Respiratory Rate Blood Pressure 76/46 84/52 82/54 Blood Pressure [Left] O2 Sat by Pulse 99 Oximetry 05/12/19 05/12/19 05/12/19 06:34 06:36 06:38 Temperature Pulse Rate 75 71 60 Respiratory Rate Blood Pressure 97/63 98/64 Blood Pressure [Left] O2 Sat by Pulse 99 Oximetry 05/12/19 05/12/19 05/12/19 06:39 06:41 06:44 Temperature Pulse Rate 60 59 L 63 Respiratory Rate Blood Pressure 97/60 93/55 Blood Pressure [Left] O2 Sat by Pulse 100 100 Oximetry 05/12/19 05/12/19 05/12/19 06:49 06:54 06:59 Temperature Pulse Rate 66 72 82 Respiratory Rate Blood Pressure 90/53 Blood Pressure [Left] O2 Sat by Pulse 100 99 99 Oximetry 05/12/19 05/12/19 05/12/19 07:04 07:08 07:09 Temperature Pulse Rate 66 69 69 Respiratory Rate Blood Pressure 95/54 Blood Pressure [Left] O2 Sat by Pulse 100 98 Oximetry 05/12/19 05/12/19 05/12/19 07:14 07:18 07:19 Temperature Pulse Rate 66 65 69 Respiratory Rate Blood Pressure 94/52 Blood Pressure [Left] O2 Sat by Pulse 99 99 Oximetry 05/12/19 05/12/19 05/12/19 07:24 07:27 07:29 Temperature Pulse Rate 72 63 65 Respiratory Rate Blood Pressure 91/55 Blood Pressure [Left] O2 Sat by Pulse 99 100 Oximetry 05/12/19 05/12/19 05/12/19 07:34 07:37 07:39 Temperature Pulse Rate 70 67 70 Respiratory Rate Blood Pressure 84/53 Blood Pressure [Left] O2 Sat by Pulse 99 100 Oximetry 05/12/19 05/12/19 05/12/19 07:44 07:47 07:49 Temperature Pulse Rate 89 71 79 Respiratory Rate Blood Pressure 83/53 Blood Pressure [Left] O2 Sat by Pulse 99 99 Oximetry 05/12/19 05/12/19 05/12/19 07:54 07:58 07:59 Temperature Pulse Rate 76 64 62 Respiratory Rate Blood Pressure 103/56 Blood Pressure [Left] O2 Sat by Pulse 99 99 Oximetry 05/12/19 05/12/19 05/12/19 08:04 08:09 08:14 Temperature Pulse Rate 76 61 64 Respiratory Rate Blood Pressure 96/62 Blood Pressure [Left] O2 Sat by Pulse 99 98 99 Oximetry 05/12/19 05/12/19 05/12/19 08:18 08:19 08:24 Temperature Pulse Rate 64 67 68 Respiratory Rate Blood Pressure 98/62 Blood Pressure [Left] O2 Sat by Pulse 98 98 Oximetry 05/12/19 05/12/19 05/12/19 08:29 08:30 08:34 Temperature Pulse Rate 67 65 68 Respiratory Rate Blood Pressure 92/56 Blood Pressure [Left] O2 Sat by Pulse 100 99 Oximetry 05/12/19 05/12/19 05/12/19 08:37 08:39 08:44 Temperature Pulse Rate 73 78 70 Respiratory Rate Blood Pressure 89/55 Blood Pressure [Left] O2 Sat by Pulse 98 99 Oximetry 05/12/19 05/12/19 05/12/19 08:49 08:54 08:58 Temperature Pulse Rate 63 62 62 Respiratory Rate Blood Pressure 94/61 101/66 Blood Pressure [Left] O2 Sat by Pulse 100 99 Oximetry 05/12/19 05/12/19 05/12/19 08:59 09:04 09:09 Temperature Pulse Rate 63 65 73 Respiratory Rate Blood Pressure 99/59 Blood Pressure [Left] O2 Sat by Pulse 98 98 99 Oximetry 05/12/19 05/12/19 05/12/19 09:14 09:17 09:19 Temperature Pulse Rate 78 65 89 Respiratory Rate Blood Pressure 97/59 Blood Pressure [Left] O2 Sat by Pulse 98 98 Oximetry 05/12/19 05/12/19 05/12/19 09:24 09:28 09:29 Temperature Pulse Rate 79 63 62 Respiratory Rate Blood Pressure 87/52 Blood Pressure [Left] O2 Sat by Pulse 100 100 Oximetry 05/12/19 05/12/19 05/12/19 09:34 09:38 09:39 Temperature Pulse Rate 98 H 100 H 107 H Respiratory Rate Blood Pressure 103/59 Blood Pressure [Left] O2 Sat by Pulse 99 98 Oximetry 05/12/19 09:44 Temperature Pulse Rate 97 H Respiratory Rate Blood Pressure Blood Pressure [Left] O2 Sat by Pulse 99 Oximetry - Exam Breasts: normal Cardiovascular: Regular rate Lungs: Clear to auscultation Abdomen: Present: normal appearance, soft, normal bowel sounds Uterus: Present: normal, firm, fundal height above umbilicus FHR: category 1 Uterine Contraction Monitor Mode: External Cervical Dilatation: 10 (AROM of a small amount of clear fluid at 0943) Cervical Effacement Percentage: 100 station: -3 Uterine Contraction Pattern: Regular Uterine Tone Measurement Phase: Resting Uterine Contraction Intensity: Moderate Extremities: normal - Labs Labs: Laboratory Results - last 24 hr 05/10/19 12:48 RPR Nonreactive
[2019-05-12] MEDS ORDERED: NORCO 5/325 PO PRN (12:07)
[2019-05-12] MEDS ORDERED: BENADRYL PO PRN (12:07)
[2019-05-12] MEDS ORDERED: PHENERGAN PO PRN (12:07)
--- NOTE | 2019-05-12 12:14 | Procedure Note ---
OB Delivery Note - Delivery Date of Delivery: 05/12/19 (1156) Surgeon: IRAM MCADAMS Estimated blood loss: other (150) - Vaginal Delivery presentation: vertex Delivery position: OA Intrapartum events: none Delivery induction: cervidil Delivery augmentation: rupture of membranes, pitocin Delivery monitor: external FHT, external uterine Route of delivery: Delivery placenta: spontaneous Delivery cord: 3 umbilical vessels Episiotomy: none Delivery laceration: none Anesthesia: epidural Delivery comments: of a live 6'4 female infant over a intact perineum under epidural anesthesia with Apgars of 8 and 9 at 1156 on 05/12/2019. Mother declines skin to skin contact. Spontaneous delivery of placenta complete and intact with Eckert side presenting at 1200. Fundus is firm and midline located 4 below the U. Lochia is scant. Delayed cord clamping and cutting; cord cut by Mother in law. Placenta discarded. - A at 1 minute: 8 at 5 minutes: 9 Gender: Female (.)
[2019-05-12] MEDS ORDERED: SODIUM CHLORIDE FLUSH SYRINGE 10 ML IV NR (13:00)
[2019-05-12] MEDS: IBUPROFEN PO SCH ×2 (15:15→23:10)
[2019-05-13] MEDS: IBUPROFEN PO SCH ×5 (01:00→23:29)
[2019-05-13 02:57] LABS: Hematocrit 33.1 % (30.3-42.9); Hemoglobin 10.7 gm/dl (10.1-14.3)
--- NOTE | 2019-05-13 09:51 | Progress Note ---
Assessment and Plan A: day 1 S/P spontaneous vaginal delivery. Anemia secondary to and blood loss. P: Supplement with iron. Encouraged ambulation. Subjective - Subjective Date of service: 05/13/19 Principal diagnosis: day 1 S/P spontaneous vaginal delivery Interval history: day 1 S/P spontaneous vaginal delivery. Doing well. Reports mild afterbirth pains. Reports small amount of lochia. Voiding without difficulty. Ambulating well. Tolerating a regular diet. Patient denies headache, cough, chest pain, SOB, leg pain, or heavy bleeding. Patient reports: appetite normal, voiding normally, pain well controlled, flatus, ambulating normally, no dizzy ambulation, no nauseated [place]: doing well Objective - Vital Signs Latest vital signs: Vital Signs Temp Temp Pulse Resp BP BP Pulse Ox 05/13/19 08:04 98.3 F 68 15 106/75 98 05/13/19 01:00 18 05/13/19 00:10 18 05/12/19 23:32 98.2 F 79 20 97/57 96 05/12/19 23:10 18 05/12/19 19:35 76 100 05/12/19 19:33 98.2 F 20 94/62 05/12/19 14:36 99.1 F 81 19 107/66 99 05/12/19 13:13 75 100 05/12/19 13:08 76 100 05/12/19 13:04 75 102/58 05/12/19 13:03 73 100 05/12/19 12:58 72 100 05/12/19 12:53 75 100 05/12/19 12:50 98.0 F 81 105/55 05/12/19 12:48 85 100 05/12/19 12:43 96 H 93 05/12/19 12:42 93 H 81 L 05/12/19 12:38 91 H 100 05/12/19 12:33 95.5 F L 130 H 44 H 100 05/12/19 12:28 78 100 05/12/19 12:23 81 100 05/12/19 12:20 85 99/47 05/12/19 12:18 87 99 05/12/19 12:13 87 100 05/12/19 12:08 95 H 100 05/12/19 12:03 91 H 107/60 05/12/19 11:58 111 H 116/61 81 L 05/12/19 11:54 121 H 100 05/12/19 11:49 127 H 100 05/12/19 11:44 107 H 99 05/12/19 11:39 87 100 05/12/19 11:34 97 H 100 05/12/19 11:29 93 H 100 05/12/19 11:28 93 H 95/70 05/12/19 11:24 96 H 100 05/12/19 11:19 75 94/51 100 05/12/19 11:14 78 100 05/12/19 11:09 71 92/51 100 05/12/19 11:04 82 100 05/12/19 10:59 86 100 05/12/19 10:56 116 H 94 05/12/19 10:54 84 100 05/12/19 10:49 95 H 100 05/12/19 10:44 108 H 100 05/12/19 10:39 96 H 100 05/12/19 10:34 114 H 100 05/12/19 10:30 111 H 88 05/12/19 10:29 86 100 05/12/19 10:24 89 99 05/12/19 10:19 83 96/58 100 05/12/19 10:14 76 99 05/12/19 10:09 72 98 05/12/19 10:08 78 94/64 05/12/19 10:04 105 H 99 05/12/19 09:59 105 H 102/64 98 05/12/19 09:54 92 H 99 05/12/19 09:50 95 H 90/56 05/12/19 09:49 81 98/56 99 Intake and Output 05/12/19 05/13/19 05/13/19 23:59 07:59 15:59 Intake Total 520 240 Output Total 650 Balance -130 240 Intake: Oral 420 Intake, Free Water 100 240 Output: Urine 650 Void 650 Other: Total, Intake Amount 120 Total, Output Amount 650 # Voids Void 1 1 - Exam Cardiovascular: Present: Regular rate, Normal S1, Normal S2 Lungs: Present: Clear to auscultation Abdomen: Present: normal appearance, soft. Absent: distention, tenderness, guarding, rigidity Uterus: Present: normal, firm, fundal height below umbilicus. Absent: bogginess, tenderness Extremities: Present: normal. Absent: tenderness, edema
[2019-05-13] MEDS: FEOSOL PO SCH ×2 (11:09→23:28)
[2019-05-14] MEDS: IBUPROFEN PO SCH ×2 (01:00→06:29)
--- NOTE | 2019-05-14 09:19 | Progress Note ---
Assessment and Plan - Patient Problems (1) Status post normal vaginal delivery Current Visit: Yes Status: Acute Plan to address problem: PPD 2 - stable Discharge to home today Follow up at [facility] as needed or in 6 weeks for exam Subjective - Subjective Date of service: 05/14/19 Principal diagnosis: PPD #2, s/p Interval history: see H&P, OB Progress Notes, OB Delivery Procedure Note, PP/DAILY RELEASE AND DUPE PRINTER Progress Note Patient reports: appetite normal, voiding normally, pain well controlled, ambulating normally : doing well, nursing well Objective - Vital Signs Latest vital signs: Vital Signs Temp Pulse Resp BP Pulse Ox 05/14/19 07:01 18 05/14/19 06:29 18 05/14/19 01:00 18 05/14/19 00:29 18 05/13/19 23:40 98.2 F 62 20 115/68 100 05/13/19 23:29 18 05/13/19 19:41 18 05/13/19 15:48 98.1 F 76 20 106/60 98 05/13/19 11:48 98.4 F 99 H 16 106/69 98 Intake and Output 05/13/19 05/14/19 05/14/19 23:59 07:59 15:59 Intake Total 1340 360 Balance 1340 360 Intake: Oral 1340 240 Intake, Free Water 120 Other: Total, Intake Amount 120 240 # Voids Void 1 1 # Bowel Movements 0 - Exam Cardiovascular: Present: Regular rate Lungs: Present: Clear to auscultation Abdomen: Present: normal appearance, soft Vulva: both: normal Uterus: Present: normal, firm, fundal height below umbilicus Extremities: Present: normal Comments: small lochia
--- NOTE | 2019-05-14 09:22 | Discharge Summary ---
Providers - Providers Date of Admission: 05/10/19 12:13 Date of discharge: 05/14/19 Attending physician: DIAMOND CURRAN MD Primary care physician: DIAMOND CURRAN MD Hospitalization Reason for admission: induction of labor, IUP at term Delivery: Episiotomy: none Laceration: none Other procedures: none complications: none Discharge diagnosis: IUP at term delivered [place] baby: female Hospital course: Uncomplicated Condition at discharge: Stable Disposition: [place]-01 TO HOME OR SELFCARE - Discharge Diagnoses (1) Status post normal vaginal delivery Status: Acute Plan - Discharge Medications Prescriptions: Ibuprofen [Motrin 600 MG tab] 600 mg PO Q6H #30 tablet - Provider Discharge Summary Activity: routine, no sex for 6 weeks, no heavy lifting 4 weeks, no strenuous exercise Diet: routine Instructions: routine Additional instructions: [] Smoking cessation referral if applicable(refer to patient education folder for contact #) [] Refer to [facility] Booklet Call your doctor immediately for: * Fever > 100.5 * Heavy vaginal bleeding ( >1 pad per hour) * Severe persistent headache * Shortness of breath * Reddened, hot, painful area to leg or breast * Drainage or odor from incision. * Keep incision clean and dry at all times and follow doctor's instructions regarding bathing/showering - Follow up plan Follow up: DIAMOND CURRAN MD [Primary Care Provider] - 6 Weeks (Follow up at [facility] as needed or in 6 weeks for exam) Forms: [facility] Discharge Summary
[2019-05-14] MEDS: FEOSOL PO SCH (09:59)
[2019-05-14 11:10] VITALS: BP 122/73
== END 2019-05-14 11:29 | disposition home or self-care (01) | DRG 775 ==
LOC: LD 12:13 → OB 05-12 14:24
PROVIDERS: ADMIT Obstetrics & Gynecology; ATTEND Obstetrics & Gynecology
PROC: 10E0XZZ Delivery of Products of Conception, External Approach (ICD-10-PCS; principal; 2019-05-12)
PROC: 10907ZC Drainage of Amniotic Fluid, Therapeutic from Products of Conception, Via Natural or Artificial Opening (ICD-10-PCS; 2019-05-12)
PROC: 3E0P7VZ Introduction of Hormone into Female Reproductive, Via Natural or Artificial Opening (ICD-10-PCS; 2019-05-12)
PROC: 3E0R3BZ Introduction of Anesthetic Agent into Spinal Canal, Percutaneous Approach (ICD-10-PCS; 2019-05-12)
PROC: 00HU33Z Insertion of Infusion Device into Spinal Canal, Percutaneous Approach (ICD-10-PCS; 2019-05-12)
DX: O41.03X0 Oligohydramnios, third trimester, not applicable or unspecified (principal); G51.0 Bell's palsy; O75.89 Other specified complications of labor and delivery; D50.0 Iron deficiency anemia secondary to blood loss (chronic); O99.02 Anemia complicating childbirth; Z37.0 Single live birth; Z3A.38 38 weeks gestation of pregnancy
CPT/HCPCS: 36415; 59200; 85014; 85018; 85027; 86592; 86850; 86900; 86901; G0378; J2590; J3010; J7120; Q0169